=== PATIENT | male | born 1985 | race Caucasian/White ===

== ENCOUNTER 2022-09-29 16:02 | Outpatient (CLI) | payer OTHER ==
--- NOTE | 2022-09-30 12:37 | MRI Report ---
PROCEDURE: SHOULDER WO - RT INDICATIONS: SHOULDER IMPINGEMENT TECHNIQUE: Noncontrast oblique coronal T2 fast spin echo with fat saturation, oblique sagittal T1 spin echo and T2 fast spin echo with fat saturation, axial T1 spin echo and T2 fast spin echo with fat saturation t hrough the shoulder. COMPARISON: None. FINDINGS: Image quality: Excellent. Rotator cuff: Low grade articular and bursal surface partial-thickness tear involving distal supraspi natus at its insertion on humeral head is seen extending to muscular tendinous junction. Distal infra spinatus tendinosis at its insertion on humeral head is seen. Distal subscapularis tendon is grossly intact. No full-thickness rotator cuff tendon rupture. No rotator cuff muscle atrophy on sagittal saul ges. Bones and bursae: Significant marrow edema involving acromioclavicular joint is seen without discrete fracture line. Mild acromioclavicular joint osteoarthritic changes also seen. Thickened acromioclavi cular ligaments is seen. Small amount of fluid is also noted within acromioclavicular joint. No patho logic subacromial/subdeltoid bursal fluid is present. Capsule and soft tissues: In the absence of intra-articular contrast, the labrum and glenohumeral li gaments appear intact. The long head of the biceps tendon demonstrates normal location and morpholog y. The rotator interval appears normal, without fibrosis. The coracohumeral ligament is normal in t hickness. IMPRESSION: 1. Finding is suggestive of low-grade AC separation with edema involving distal clavicle and adjacent acromion and thickened acromioclavicular ligament. Small amount of fluid within acromioclavicular beto int. Mild acromioclavicular joint osteoarthritis. No fracture or dislocation. 2. Low-grade articular and bursal surface partial-thickness tear involving distal supraspinatus exten ding to muscular tendinous junction. Distal infraspinatus tendinosis. No full-thickness rotator cuff tendon rupture. 3. No definite focal labral tear. Reviewed by: Brandon Johnson MD on 09/30/2022 12:35 PM PST Approved by: Brandon Johnson MD on 09/30/2022 12:35 PM PST Station ID: [id number]
== END 2022-09-29 16:03 | disposition home or self-care (01) ==
LOC: DI 16:02
DX: M19.011 Primary osteoarthritis, right shoulder (principal); M75.111 Incomplete rotator cuff tear or rupture of right shoulder, not specified as traumatic; M25.411 Effusion, right shoulder